=== PATIENT | male | born 1960 | race Caucasian/White ===

== ENCOUNTER 2022-03-21 10:36 | Outpatient (CLI) | payer SELFPAY ==
[2022-03-21 11:52] LABS: HF Add Manual Diff No
[2022-03-21 12:01] LABS: Basophils # 0.1 10^3/uL (0.0-0.1); Basophils % 0.9 %; Eosinophils # 0.2 10^3/uL (0.0-0.8); Eosinophils % 2.5 %; Hematocrit 43.4 % (42.0-52.0); Hemoglobin 14.8 g/dL (11.7-16.6); Lymphocytes % 32.1 %; Mean Corpuscular HGB Conc 34.1 g/dL (30.0-36.0); Mean Corpuscular Volume 90.8 fl (80-94); Mean Platelet Volume 8.7 fL (7.4-10.4); Monocytes # 0.6 10^3/uL (0.2-0.9); Monocytes % 6.2 %; Neutrophils # 5.43 10^3/uL (1.8-7.7); Nucleated Red Blood Cells % 0 %; Platelet Count 364 10^3/cmm (130-400); Red Blood Count 4.78 10^6/uL (4.1-5.3); Red Cell Distribution Width 13.2 % (12.1-15.1); White Blood Count 9.4 10^3/uL (4.0-10.0)
[2022-03-21 12:20] LABS: Estmated Average Glucose 120; Hemoglobin A1C 5.8 % (4.0-6.0)
[2022-03-21 12:24] LABS: Alanine Aminotransferase 18 U/L (0-41); Albumin Level 4.4 g/dL (3.5-5.2); Alkaline Phosphatase 137 U/L (40-130); Anion Gap 16.7 (5-19); Aspartate Amino Transferase 18 U/L (0-40); Blood Urea Nitrogen 7 mg/dL (8-23); Calcium 9.3 mg/dL (8.5-10.5); Carbon Dioxide 25 mmol/L (22-29); Chloride 98 mmol/L (98-107); Chol HDL Ratio 3.33 mg/dL (1.0-5.00); Cholesterol 170 mg/dL (0-200); Globulin 2.5 g/dL (1.3-4.6); Glomerular Filtration Rate 85.8 mL/min (90-130); Glucose 84 mg/dL (65-115); HDL Cholesterol 51 mg/dL (60-100); LDL Cholesterol Calculated 91 mg/dL (50-129); LDL HDL Ratio 1.78 RATIO (0.00-3.22); Osmolality Calculated 277 mOsm/kg (285-295); Potassium 4.7 mmol/L (3.5-5.1); Prostate Specific Antigen Scr 0.78 ng/mL (0-4); Sodium 135 mmol/L (136-145); Thyroid Stimulating Hormone 2.72 uIU/mL (0.27-4.20); Total Bilirubin 0.3 mg/dL (0.15-1.2); Total Protein 6.9 g/dL (6.6-8.7); Triglycerides 139 mg/dL (0-150)
== END 2022-03-21 10:37 | disposition home or self-care (01) ==
PROVIDERS: Visit Provider Dermatology
DX: Z01.89 Encounter for other specified special examinations (principal)
CPT/HCPCS: 36415; 85025

== ENCOUNTER 2022-04-28 12:25 | Outpatient (CLI) | payer MEDICAID, SELFPAY ==
--- NOTE | 2022-04-28 12:50 | XR_ITS ---
WS: [email or web address] Cervical spine, 3 views, 04/28/2022 Clinical Data: Chronic neck pain Comparison: None. Findings: No compression fractures are seen. The disc heights are normal. There is a small calcificat ion at the anterior inferior C5 vertebral body. There is no prevertebral soft tissue swelling. The od ontoid is unremarkable. There is a dense calcification to the right of the C3 vertebral body which is probably a lymph node. There are cystic changes in both upper lobes probably from bullous emphysema. XR/XR cervical spine 3V* [id number] Impression: Minimal osteoarthritic spurring of the C5 vertebral body.
--- NOTE | 2022-04-28 12:50 | XR_ITS ---
WS: [email or web address] Lumbar spine, 3 views, 04/28/2022 Clinical Data: Chronic back pain, multiple falls from height. Comparison: None. Findings: No compression fractures or subluxation is seen. The superior cortical margins of the L2-L4 vertebral bodies show slight loss of height. There is anterior osteoarthritic spurring L1-L5. No disc space na rrowing is seen. The transverse processes and SI joints are normal. There is calcification of the wall of the abdominal aorta but no aneurysm. XR/XR lumbar spine 2-3V* [id number] Impression: 1. Slight loss of height of the superior cortical margins of L2-L4. 2. Osteoarthritis L1-L5.
--- NOTE | 2022-04-28 12:50 | XR_ITS ---
WS: [email or web address] Thoracic spine, 3 views, 04/28/2022 Clinical Data: Chronic back pain, multiple falls from height Comparison: None. Findings: No compression fractures are seen. The disc heights are normal. The paravertebral regions are normal. There is minimal osteoarthritic spurring of all thoracic verteb ral bodies. There are probably chronic interstitial changes throughout the lungs from chronic obstruc tive pulmonary disease. XR/XR thoracic spine 2V [id number] Impression: Mild osteoarthritic spurring of all the thoracic vertebral bodies.
== END 2022-04-28 12:26 | disposition home or self-care (01) ==
LOC: RAD 12:29
PROVIDERS: PCP Family Medicine; Visit Provider Family Medicine
DX: M54.2 Cervicalgia (principal); M54.6 Pain in thoracic spine; M54.50 Low back pain, unspecified; W19.XXXA Unspecified fall, initial encounter; M47.894 Other spondylosis, thoracic region; M47.816 Spondylosis without myelopathy or radiculopathy, lumbar region
CPT/HCPCS: 72040; 72070; 72100

== ENCOUNTER → 2023-10-11 08:32 | Outpatient (BNVA) | payer MEDICAID, SELFPAY | PROVIDERS: PCP Family Medicine; Visit Provider Family Medicine | DX: E83.42 Hypomagnesemia (principal); F17.219 Nicotine dependence, cigarettes, with unspecified nicotine-induced disorders; R14.0 Abdominal distension (gaseous); M25.50 Pain in unspecified joint; M54.2 Cervicalgia; G89.29 Other chronic pain; Z12.5 Encounter for screening for malignant neoplasm of prostate | CPT/HCPCS: 80053; 80061; 83735; 84443; 85025; 85651; 86003; 86008; 86038; 86140; 86431; G0103 ==

== ENCOUNTER → 2023-11-13 09:16 | Outpatient (BNVA) | payer MEDICAID, SELFPAY | PROVIDERS: PCP Family Medicine; Visit Provider Family Medicine | DX: M54.2 Cervicalgia (principal); G89.29 Other chronic pain; M54.50 Low back pain, unspecified; M25.50 Pain in unspecified joint | CPT/HCPCS: 86200 ==

== ENCOUNTER 2023-11-22 07:59 | Outpatient (CLI) | payer MEDICAID, SELFPAY ==
--- NOTE | 2023-11-22 08:02 | XR_ITS ---
WS: [email or web address] Cervical spine, 4 views, 11/22/2023 Clinical Data: Chronic neck pain Comparison: Cervical spine, 04/28/2022 Findings: No compression fractures are seen. The disc heights are normal. There is a small calcificat ion at the anterior inferior aspect of C5 unchanged. There is no prevertebral soft tissue swelling. T he odontoid is unremarkable. There is a probable calcified lymph node on the right side of the C2 felton tebral body. There are bullous emphysema changes in the upper lobes.. XR/XR cervical spine 3V* [id number] Impression: Mild osteoarthritis at the inferior aspect of C5.
--- NOTE | 2023-11-22 08:02 | XR_ITS ---
WS: [email or web address] Lumbar spine, 3 views, 11/22/2023 Clinical Data: low back pain Comparison: Lumbar spine, 04/28/2022 Findings: No compression fractures or subluxation is seen. The superior cortical margins of L2, L3 and L4 show slight loss of height unchanged. There is osteoarthritic spurring L1-L5 unchanged. SI joints are norm al. No degenerative disc narrowing is seen. The abdominal aorta shows calcification with no aneurysm. XR/XR lumbar spine 2-3V* [id number] Impression: 1. Slight loss of height of the superior cortical margins of L2-L4 unchanged. 2. Osteoarthritis L1-L5.
== END 2023-11-22 08:00 | disposition home or self-care (01) ==
LOC: RAD 08:02
PROVIDERS: PCP Family Medicine; Visit Provider Family Medicine
DX: M47.896 Other spondylosis, lumbar region (principal); J43.9 Emphysema, unspecified
CPT/HCPCS: 72040; 72100

== ENCOUNTER → 2025-03-11 14:10 | Outpatient (BNVA) | payer MEDICAID, SELFPAY | PROVIDERS: PCP Family Medicine; Visit Provider Family Medicine | DX: Z12.5 Encounter for screening for malignant neoplasm of prostate (principal); E55.9 Vitamin D deficiency, unspecified; M54.16 Radiculopathy, lumbar region; E78.2 Mixed hyperlipidemia; R79.89 Other specified abnormal findings of blood chemistry | CPT/HCPCS: 80053; 80061; 82306; 82607; 84443; 85025; G0103 ==

== ENCOUNTER 2025-03-19 09:40 | Outpatient (CLI) | payer MEDICAID, SELFPAY ==
--- NOTE | 2025-03-19 10:00 | CT_ITS ---
WS: [email or web address] LDCT LUNG CANCER SCREENING HISTORY: F17.219 - Nicotine dependence, cigarettes, with unspecifi... TECHNIQUE: Axial imaging performed from the apices to 1 cm below the costophrenic angles. Coronal and sagittal reformats are submitted with axial MIP series. All CT scans at [facility] use at least one of these dose optimization techniques: automated exposure control; mA and/or kV adjustment per patient size (includes targeted exams where dose is matched to clinical indication); or iterative reconstruction. DLP: 57.91 mGy.cm DIvol: Mean CTDIvol: 0.90 (mGy) COMPARISON: PET/CT 06/19/2018 Diagnostic quality: Satisfactory Lungs: Severe hyperexpansion with bullous and bleb disease. Paraseptal and centrilobular emphysema. Biapical pleural thickening and fibrosis is similar to the PET/CT from 06/19/2018. Large bulla at the lung apices. Linear scarlike area of fibrosis with traction noted in the RIGHT upper lobe. This has progressed since the prior PET/CT. Curvilinear opacification LEFT main bronchus. No mass or nodule. Heart: Normal size heart with no pericardial effusion.. Other findings: Mild atherosclerosis aorta. Normal size aorta and pulmonary artery. No mediastinal or hilar adenopathy. CT/CT lung screening [id number] IMPRESSION: LUNG-RADS: 2-Benign Appearance or Behavior FOLLOW UP: 12 Month: Continue annual screening with LDCT OTHER FINDINGS (S MODIFIER): None.
== END 2025-03-19 09:41 | disposition home or self-care (01) ==
LOC: RAD 09:40
PROVIDERS: PCP Family Medicine; Visit Provider Family Medicine
DX: F17.219 Nicotine dependence, cigarettes, with unspecified nicotine-induced disorders (principal); J43.2 Centrilobular emphysema; I70.0 Atherosclerosis of aorta; J84.10 Pulmonary fibrosis, unspecified
CPT/HCPCS: 71271

== ENCOUNTER 2025-04-28 06:51 | Outpatient (CLI) | payer MEDICAID, SELFPAY ==
[2025-04-28 07:25] VITALS: PULSE 83; RESP 18; O2SAT 96
== END 2025-04-28 06:52 | disposition home or self-care (01) ==
LOC: RT 06:52
PROVIDERS: PCP Family Medicine; Visit Provider Family Medicine
DX: J44.89 Other specified chronic obstructive pulmonary disease (principal); F17.219 Nicotine dependence, cigarettes, with unspecified nicotine-induced disorders; R06.00 Dyspnea, unspecified
CPT/HCPCS: 94060; 94726; 94729; J7613